=== PATIENT | male | born 1980 | race African-American/Black ===

== ENCOUNTER 2016-12-17 17:11 | Emergency (ER) | payer BC ==
--- NOTE | ~2016-12-17 | CR21 ---
[facility] A Service of [facility] RADIOLOGY TEXT RESULTS PATIENT: MONI SUTHERLAND SR. LOCATION: [facility] : 78 UNIT #: [id number] AGE: [address]: Claribel Holt SEX: M ORDER DR: [id number] [facility] [address] [place], [place] [address] [id number] E MR#: [id number] Acc #: [id number] NAME: MONI SUTHERLAND SR. : 1980 SEX: M STUDY DATE/TIME: 12/17/2016 16:48 UNIT: [facility] ROOM: STUDY DESCRIPTION: CR Ankle Min 3 Views Rt Attending Physician: Claribel Holt P.A.-C. Ordering Physician: Claribel Holt P.A.-C. Primary Care Physician: No Primary Care Physician MEDICAL IMAGING REPORT This report is preliminary unless electronic signature is present EXAM Right ankle, 3 views. HISTORY Ankle pain after basketball injury today. FINDINGS 3 views of the right ankle demonstrate satisfactory bone alignment. Moderately large posterior calcaneal spur and small plantar calcaneal spur. 2.5 cm well-marginated chronic appearing soft tissue calcification along the posterior margin of the distal lower leg along the Achilles tendon could be secondary to old trauma and dystrophic calcification. No joint space narrowing. No dislocation. IMPRESSION 1. No acute finding. 2. Satisfactory bone alignment. 3. 2.5 cm well-marginated soft tissue calcification in the posterior margin of the distal lower leg along the Achilles tendon is likely dystrophic calcification and chronic. No joint space narrowing. Dictated by... Chepe Omer M.D. THIS IS AN ELECTRONICALLY VERIFIED REPORT Chepe Omer M.D. at 12/17/2016 11:44 PM SEAN/litzy TD: 12/17/2016 19:00 JOB #: [id number] [facility] A Service of [facility] RADIOLOGY TEXT RESULTS PATIENT: MONI SUTHERLAND SR. LOCATION: [facility] : 78 UNIT #: [id number] AGE: [address]: Claribel Holt SEX: M ORDER DR: MEDICAL IMAGING REPORT Page 1 of 1 COPY
--- NOTE | ~2016-12-17 | CR253 ---
[facility] A Service of [facility] RADIOLOGY TEXT RESULTS PATIENT: MONI SUTHERLAND SR. LOCATION: [facility] : 78 UNIT #: [id number] AGE: [address]: Claribel Holt SEX: M ORDER DR: [id number] [facility] [address] [place], [place] [address] [id number] E MR#: [id number] Acc #: [id number] NAME: MONI SUTHERLAND SR. : 1980 SEX: M STUDY DATE/TIME: 12/17/2016 16:47 UNIT: [facility] ROOM: STUDY DESCRIPTION: CR Tibia and Fibula 2 Views Rt Attending Physician: Claribel Holt P.A.-C. Ordering Physician: Claribel Holt P.A.-C. Primary Care Physician: No Primary Care Physician MEDICAL IMAGING REPORT This report is preliminary unless electronic signature is present EXAM Right tibia and fibula, AP and lateral. HISTORY Leg pain after a basketball injury today. Swelling. FINDINGS AP and lateral views of the right tibia and fibula demonstrate satisfactory bone alignment. 2.5 cm lobulated well-marginated calcification along the posterior margin of the distal lower leg along the Achilles tendon appears chronic. Moderately large posterior calcaneal spur. No fracture. No abnormal sclerosis in the tibia or fibula. IMPRESSION 1. No acute finding. 2. Satisfactory bone alignment of the tibia and fibula. 3. 2.5 cm smoothly marginated chronic-appearing soft tissue calcification along the proximal margin of the Achilles tendon. Dictated by... Chepe Omer M.D. THIS IS AN ELECTRONICALLY VERIFIED REPORT Chepe Omer M.D. at 12/17/2016 11:44 PM SEAN/litzy TD: 12/17/2016 18:58 JOB #: [id number] MEDICAL IMAGING REPORT Page 1 of 1 COPY
== END 2016-12-17 19:09 | disposition home or self-care (01) ==
LOC: CFTX 17:11
DX: S86.111A Strain of other muscle(s) and tendon(s) of posterior muscle group at lower leg level, right leg, initial encounter (principal); W45.8XXA Other foreign body or object entering through skin, initial encounter; Y93.67 Activity, basketball; Y92.310 Basketball court as the place of occurrence of the external cause
CPT/HCPCS: 73590; 73610; 99284

== ENCOUNTER → 2016-12-23 | Outpatient (CLI) | payer BC ==
[2016-12-23 15:42] LABS: HEMOGLOBIN 13.4 gm/dL (13.0-16.0); MEAN CELL VOLUME 86.2 FL (83-96); MEAN CORPUSCULAR HEMOGLOBIN 27.5 PG (28-34); MEAN PLATELET VOLUME 8.1 FL (6.5-11.5); RED BLOOD COUNT 4.87 X10e (3.90-5.60); RED CELL DISTRIBUTION WIDTH 13.3 % (11.0-15.5); WHITE BLOOD COUNT 9.7 X10e3 (4.0-10.5)
[2016-12-23 16:10] LABS: CALCIUM SERUM 9.6 mg/dL (8.4-10.2); POTASSIUM 4.1 mmol/L (3.5-5.1)
== END | disposition home or self-care (01) ==
LOC: CLAB 15:16
PROVIDERS: Orthopaedic Surgery
DX: Z01.812 Encounter for preprocedural laboratory examination (principal)
CPT/HCPCS: 36415; 80048; 85027